=== PATIENT | female | born 1975 | race Hispanic/Latino ===

== ENCOUNTER 2017-08-15 08:26 | Emergency (ER) | payer MEDICAID ==
[2017-08-15 08:42] VITALS: PULSE 78; RESP 18
--- NOTE | 2017-08-15 08:59 | ED PDOC ---
HPI: Abdomen Time Seen by Provider: 08/15/17 08:40 Chief Complaint (Nursing): Abdominal Pain History Per: Patient Onset/Duration Of Symptoms: Other (1 week) Current Symptoms Are (Timing): Still Present Severity: Mild Quality Of Discomfort: Gas Associated Symptoms: Constipation Exacerbating Factors: None Alleviating Factors: None Additional Complaint(s): Constipation x 1 week. Assoc with bloating and nausea but no vomiting or fever. Last BM 1 week ago. Passing gas Past Medical History Vital Signs: Last Vital Signs Temp 98.2 F 08/15/17 08:40 Pulse 78 08/15/17 08:40 Resp 18 08/15/17 08:40 BP 138/86 08/15/17 08:40 Pulse Ox 99 08/15/17 08:59 - Medical History PMH: Bipolar Disorder, Depression - Family History Family History: States: Unknown Family Hx - Home Medications Home Medications: Ambulatory Orders Medication Instructions Recorded Nitrofurantoin Macrocrystals 100 mg PO BID #14 cap 01/02/16 [Macrobid] Polyethylene Glycol 3350 [Miralax] 17 gm PO DAILY #100 ml 08/15/17 - Allergies Allergies/Adverse Reactions: Allergies Allergy/AdvReac Type Severity Reaction Status Date / Time PORK Allergy RASH Verified 05/19/16 17:30 beer Allergy RASH Uncoded 05/19/16 17:30 caramel Allergy RASH Uncoded 05/19/16 17:30 caramel color Allergy RASH Uncoded 05/19/16 17:30 Review of Systems Constitutional: Negative for: Fever Gastrointestinal: Positive for: Nausea, Abdominal Pain, Constipation. Negative for: Vomiting Physical Exam - Physical Exam Appears: Positive for: Non-toxic, No Acute Distress Skin: Positive for: Normal Color, Warm, DRY Gastrointestinal/Abdominal: Positive for: Bowel Sounds, Soft. Negative for: Tenderness, Distended Extremity: Positive for: Normal ROM Neurologic/Psych: Positive for: Alert, Oriented - ECG O2 Sat by Pulse Oximetry: 99 Disposition - Clinical Impression Clinical Impression: Constipation - Patient ED Disposition Is Patient to be Admitted: No Counseled Patient/Family Regarding: Studies Performed, Diagnosis, Need For Followup, Rx Given - Disposition Referrals: Elizabeth Stallings MD [Medical Doctor] - Disposition: Routine/Home Disposition Time: 09:56 Condition: FAIR Prescriptions: Polyethylene Glycol 3350 [Miralax] 17 gm PO DAILY #100 ml Instructions: Constipation in Adults Forms: [facility] ([place])
--- NOTE | 2017-08-15 09:57 | RAD ---
HISTORY: constipation COMPARISON: 03/23/2009. FINDINGS: BOWEL: There is moderate amount of stool in the colon. There is gaseous distension of bowel loop in the left mid abdomen. BONES: Normal. OTHER FINDINGS: None. IMPRESSION: Constipation and gaseous distension of bowel in the left mid abdomen.
[2017-08-15 10:06] VITALS: BP 127/76; TEMP 97; O2SAT 98
== END 2017-08-15 10:09 | disposition home or self-care (01) ==
LOC: H.ER 08:26
DX: K59.00 Constipation, unspecified (principal); F31.9 Bipolar disorder, unspecified